=== PATIENT | male | born 1980 | race Caucasian/White ===

== ENCOUNTER 2021-08-22 06:00 | Inpatient (IN) | payer SELFPAY ==
[2021-08-22 06:38] LABS: #Eosinphils 0.1 thou/uL (0.0-0.7); #Lymphocytes 0.8 thou/uL (1.20-3.40); #Monocytes 0.8 thou/uL (0.11-0.59); #Neutrophils 5.2 thou/uL (1.40-6.50); %Basophils 0.3 % (0.0-1.0); %Eosinophils 1.3 % (0.0-10.0); %Lymphocytes 11.7 % (21.0-51.0); %Monocytes 11.6 % (0.0-10.0); %Neutrophils 75.1 % (42.0-75.0); Hemoglobin 10.1 g/dL (14.0-18.0); Mean Corpuscular HGB CONC 32.5 g/dL (32.0-36.0); Mean Corpuscular Hemoglobin 28.2 pg (27.0-31.0); Mean Corpuscular Volume 86.8 fL (78.0-98.0); Mean Platelet Volume 8.8 fL (7.4-10.4); Platelet Count 236 thou/uL (130-400); Red Blood Cell (RBC) Count 3.58 mill/uL (4.70-6.10); White Blood Cell (WBC) Count 6.9 thou/uL (4.8-10.8)
[2021-08-22 06:50] LABS: PTT 26.5 sec (22.9-36.1); Prothrombin Time 13.1 sec (12.0-14.7)
[2021-08-22 06:59] LABS: ALT (SGPT) 11 U/L (8-55); AST (SGOT) 14 U/L (5-34); Albumin 4.1 g/dL (3.5-5.0); Alcohol Less than 10 mg/dL (Less than 10); Alkaline Phosphatase 102 U/L (40-110); Anion Gap 12 mmol/L (10-20); BUN (Urea Nitrogen) 10 mg/dL (8.9-20.6); Bilirubin, Total Less than 0.2 mg/dL (0.2-1.2); Calc. Creatinine Clearance 0 mL/min (70-130); Calcium 8.3 mg/dL (7.8-10.44); Carbon Dioxide 29 mmol/L (22-29); Chloride 106 mmol/L (98-107); Globulin 2.6 g/dL (2.4-3.5); Glucose 105 mg/dL (70-105); Potassium 3.6 mmol/L (3.5-5.1); Protein, Total 6.7 g/dL (6.0-8.3); Sodium 143 mmol/L (136-145)
[2021-08-22] MEDS ORDERED: Morphine 2 MG/ML VIAL ONE (07:46)
[2021-08-22 08:42] LABS: Hemoglobin 8.9 g/dL (14.0-18.0); Platelet Count 204 thou/uL (130-400)
[2021-08-22] MEDS ORDERED: Famotidine/PF 20 mg/2ml Vial SLOW IVP SCH (09:00)
[2021-08-22 09:57] LABS: Amphetamine Not Detected (NotDetected); Barbiturates Screen Detected (NotDetected); Benzodiazepine Screen Not Detected (NotDetected); Cocaine Metabolite Screen Not Detected (NotDetected); Methadone Not Detected (NotDetected); Methamphetamine Not Detected (NotDetected); Opiate Screen Detected (NotDetected); Oxycodone Screen Not Detected (NotDetected); Phencyclidine (PCP) Not Detected (NotDetected); THC/Cannabinoid Screen Not Detected (NotDetected); Tricyclic Screen Not Detected (NotDetected)
[2021-08-22] MEDS ORDERED: Lorazepam 2 MG/ML VIAL SLOW IVP PRN (09:58)
[2021-08-22] MEDS ORDERED: Morphine 4 MG/ML VIAL SLOW IVP PRN (10:03)
[2021-08-22] MEDS ORDERED: Electrolyte Replacement Protocol 1 EACH FS SCH (10:15)
[2021-08-22] MEDS ORDERED: EPINEPHrine 1 MG/ML AMP IVP PRN (10:21)
[2021-08-22 10:30] LABS: SARS-CoV-2 NAA Rapid Test Not Detected (NotDetected)
[2021-08-22 10:32] LABS: Magnesium 1.7 mg/dL (1.6-2.6)
[2021-08-22] MEDS ORDERED: Electrolyte Replacement Protocol FS PRN (11:00)
[2021-08-22] MEDS ORDERED: Magnesium 2 GM/50 ML(in water) 2 GM in Premix Bag 1 BAG IVPB SCH (11:00)
[2021-08-22] MEDS: FOLIC ACID SC SCH (11:01)
[2021-08-22] MEDS: ADMIXTURE FEE SC SCH (11:01)
[2021-08-22] MEDS: diphenhydrAMINE 50 MG/ML VIAL IVP PRN ×3 (11:01→19:39)
[2021-08-22] MEDS: Pantoprazole 40 MG VIAL IVP SCH ×2 (11:02→21:16)
[2021-08-22] MEDS: Lactated Ringer's 1,000 ML IV SCH ×2 (11:02→21:10)
[2021-08-22 11:20] VITALS: BMI 24.9
[2021-08-22] MEDS: Fosphenytoin Sodium 200 MG in Sodium Chloride 0.9% 50 ML IVPB SCH ×2 (12:31→21:16)
[2021-08-22] MEDS: Morphine 4 MG/ML VIAL SLOW IVP PRN ×2 (13:52→16:02)
[2021-08-22] MEDS: metroNIDAZOLE 500 MG in Premix Bag 1 BAG IVPB SCH ×2 (13:53→22:41)
[2021-08-22 14:43] LABS: Hemoglobin 9.1 g/dL (14.0-18.0); Platelet Count 196 thou/uL (130-400)
[2021-08-22] MEDS: Promethazine HCl 25 MG in Sodium Chloride 0.9% 50 ML IVPB PRN ×2 (15:23→21:56)
[2021-08-22] MEDS ORDERED: Promethazine HCl 25 MG/ML VIAL IM PRN (18:36)
[2021-08-22] MEDS ORDERED: Zolpidem Tartrate 5 MG TAB PO PRN (18:36)
[2021-08-22] MEDS ORDERED: Naloxone HCl 0.4 mg/ml Vial IV PRN (18:36)
[2021-08-22] MEDS ORDERED: Ondansetron PF 4 MG/2 ML Vial IVP PRN (18:36)
[2021-08-22] MEDS ORDERED: diphenhydrAMINE 25 MG CAP PO PRN (18:36)
[2021-08-22] MEDS ORDERED: diphenhydrAMINE 50 MG/ML VIAL IM PRN (18:36)
[2021-08-22] MEDS ORDERED: Communication Order-Pharmacy FS SCH (18:45)
[2021-08-22] MEDS: HYDROmorphone 10 mg/100 ml CADD IVPB PRN (19:55)
[2021-08-22] MEDS ORDERED: levETIRAcetam in NS 500 MG in Premix Bag 1 BAG IVPB SCH (21:00)
[2021-08-22] MEDS: levETIRAcetam 500 MG/5 ML VIAL SLOW IVP SCH (21:16)
[2021-08-22 22:14] LABS: Hemoglobin 9.3 g/dL (14.0-18.0); Platelet Count 210 thou/uL (130-400)
[2021-08-23] MEDS: diphenhydrAMINE 50 MG/ML VIAL IVP PRN ×6 (00:27→23:52)
[2021-08-23] MEDS: metroNIDAZOLE 500 MG in Premix Bag 1 BAG IVPB SCH ×3 (05:27→22:43)
[2021-08-23] MEDS: Lactated Ringer's 1,000 ML IV SCH ×2 (05:28→17:13)
[2021-08-23 05:48] LABS: Hemoglobin 8.8 g/dL (14.0-18.0); Platelet Count 186 thou/uL (130-400)
[2021-08-23 06:30] LABS: #Eosinphils 0.1 thou/uL (0.0-0.7); #Lymphocytes 0.6 thou/uL (1.20-3.40); #Monocytes 0.4 thou/uL (0.11-0.59); #Neutrophils 1.7 thou/uL (1.40-6.50); %Basophils 0.4 % (0.0-1.0); %Eosinophils 4.5 % (0.0-10.0); %Monocytes 14.4 % (0.0-10.0); %Neutrophils 60.8 % (42.0-75.0); Mean Corpuscular HGB CONC 31.5 g/dL (32.0-36.0); Mean Corpuscular Hemoglobin 28.4 pg (27.0-31.0); Mean Platelet Volume 8.7 fL (7.4-10.4); Platelet Count 183 thou/uL (130-400); RBC Distribution Width 16.6 % (11.5-14.5); Red Blood Cell (RBC) Count 3.16 mill/uL (4.70-6.10); White Blood Cell (WBC) Count 2.8 thou/uL (4.8-10.8)
[2021-08-23 06:55] LABS: ALT (SGPT) 10 U/L (8-55); AST (SGOT) 12 U/L (5-34); Albumin 3.4 g/dL (3.5-5.0); Alkaline Phosphatase 89 U/L (40-110); Anion Gap 10 mmol/L (10-20); BUN (Urea Nitrogen) 5 mg/dL (8.9-20.6); Bilirubin, Total 0.2 mg/dL (0.2-1.2); Calc. Creatinine Clearance 173 mL/min (70-130); Calcium 8.3 mg/dL (7.8-10.44); Carbon Dioxide 29 mmol/L (22-29); Chloride 105 mmol/L (98-107); Globulin 2.2 g/dL (2.4-3.5); Glucose 91 mg/dL (70-105); Magnesium 1.9 mg/dL (1.6-2.6); Potassium 4.1 mmol/L (3.5-5.1); Protein, Total 5.6 g/dL (6.0-8.3); Sodium 140 mmol/L (136-145)
[2021-08-23] MEDS: Promethazine HCl 25 MG in Sodium Chloride 0.9% 50 ML IVPB PRN ×2 (08:57→16:56)
[2021-08-23] MEDS: levETIRAcetam 500 MG/5 ML VIAL SLOW IVP SCH ×2 (08:58→20:47)
[2021-08-23] MEDS: Pantoprazole 40 MG VIAL IVP SCH ×2 (08:58→20:48)
[2021-08-23 09:42] LABS: Hemoglobin 8.8 g/dL (14.0-18.0); Platelet Count 177 thou/uL (130-400)
[2021-08-23 09:49] LABS: PTT 33.7 sec (22.9-36.1); Prothrombin Time 13.6 sec (12.0-14.7)
[2021-08-23] MEDS ORDERED: Magnesium 2 GM/50 ML(in water) 2 GM in Premix Bag 1 BAG IVPB SCH (10:00)
[2021-08-23] MEDS: Fosphenytoin Sodium 200 MG in Sodium Chloride 0.9% 50 ML IVPB SCH ×2 (10:08→21:24)
[2021-08-23] MEDS: FOLIC ACID SC SCH (11:53)
[2021-08-23] MEDS: ADMIXTURE FEE SC SCH (11:53)
[2021-08-23] MEDS ORDERED: HYDROmorphone 2 MG/ML VIAL SLOW IVP PRN (14:41)
[2021-08-23] MEDS ORDERED: Promethazine HCl 25 MG/ML VIAL IM PRN (14:41)
[2021-08-23] MEDS ORDERED: Promethazine HCl 25 MG/ML VIAL IVPB PRN (14:41)
[2021-08-23] MEDS ORDERED: Ondansetron HCl/PF 4 MG/2 ML Vial IVP PRN (14:41)
[2021-08-23] MEDS ORDERED: Ondansetron PF 4 MG/2 ML Vial IVP PRN (15:47)
[2021-08-23] MEDS ORDERED: Fentanyl 100 MCG/2 ML VIAL ONE (15:53)
[2021-08-23] MEDS ORDERED: Midazolam HCl 2 mg/2 ml Vial ONE (15:53)
[2021-08-23] MEDS ORDERED: PROPOFOL 200 MG/20 ML VIAL ONE (15:57)
[2021-08-23] MEDS ORDERED: Lidocaine 1% PF 5 ML VIAL ONE (15:57)
[2021-08-23] MEDS ORDERED: GoLYTELY 4,000 ml Bottle PO SCH (16:30)
[2021-08-23] MEDS ORDERED: HYDROmorphone 0.5 MG/0.5 ML SYRINGE ONE (16:36)
[2021-08-23] MEDS: HYDROmorphone 10 mg/100 ml CADD IVPB PRN (16:57)
[2021-08-23] MEDS ORDERED: Dextrose 10% in Water 1,000 ML IV SCH (17:00)
[2021-08-23] MEDS ORDERED: Lactated Ringer's 1,000 ML IV SCH (19:00)
[2021-08-24] MEDS: diphenhydrAMINE 50 MG/ML VIAL IVP PRN ×6 (03:42→22:26)
[2021-08-24] MEDS: metroNIDAZOLE 500 MG in Premix Bag 1 BAG IVPB SCH ×3 (05:52→22:26)
[2021-08-24] MEDS: Promethazine HCl 25 MG in Sodium Chloride 0.9% 50 ML IVPB PRN ×3 (07:09→21:32)
[2021-08-24 07:12] LABS: #Eosinphils 0.1 thou/uL (0.0-0.7); #Lymphocytes 0.7 thou/uL (1.20-3.40); #Monocytes 0.5 thou/uL (0.11-0.59); #Neutrophils 2.2 thou/uL (1.40-6.50); %Basophils 0.6 % (0.0-1.0); %Eosinophils 3.4 % (0.0-10.0); %Lymphocytes 20.6 % (21.0-51.0); %Monocytes 13.1 % (0.0-10.0); %Neutrophils 62.3 % (42.0-75.0); Hemoglobin 9.7 g/dL (14.0-18.0); Mean Corpuscular HGB CONC 31.2 g/dL (32.0-36.0); Mean Corpuscular Hemoglobin 27.8 pg (27.0-31.0); Mean Corpuscular Volume 89.2 fL (78.0-98.0); Mean Platelet Volume 8.9 fL (7.4-10.4); Platelet Count 210 thou/uL (130-400); RBC Distribution Width 16.5 % (11.5-14.5); Red Blood Cell (RBC) Count 3.48 mill/uL (4.70-6.10); White Blood Cell (WBC) Count 3.5 thou/uL (4.8-10.8)
[2021-08-24 07:38] LABS: ALT (SGPT) 12 U/L (8-55); AST (SGOT) 13 U/L (5-34); Albumin 3.8 g/dL (3.5-5.0); Alkaline Phosphatase 96 U/L (40-110); Anion Gap 10 mmol/L (10-20); BUN (Urea Nitrogen) 6 mg/dL (8.9-20.6); Bilirubin, Total 0.2 mg/dL (0.2-1.2); Calc. Creatinine Clearance 160 mL/min (70-130); Calcium 8.9 mg/dL (7.8-10.44); Carbon Dioxide 29 mmol/L (22-29); Chloride 105 mmol/L (98-107); Globulin 2.4 g/dL (2.4-3.5); Glucose 76 mg/dL (70-105); Protein, Total 6.2 g/dL (6.0-8.3); Sodium 140 mmol/L (136-145)
[2021-08-24] MEDS: levETIRAcetam 500 MG/5 ML VIAL SLOW IVP SCH ×2 (07:57→22:25)
[2021-08-24] MEDS: Pantoprazole 40 MG VIAL IVP SCH ×2 (07:57→22:26)
[2021-08-24] MEDS: Fosphenytoin Sodium 200 MG in Sodium Chloride 0.9% 50 ML IVPB SCH ×2 (07:57→22:26)
[2021-08-24] MEDS ORDERED: Fentanyl 100 MCG/2 ML VIAL ONE (09:15)
[2021-08-24] MEDS ORDERED: PROPOFOL 200 MG/20 ML VIAL ONE (09:31)
[2021-08-24] MEDS ORDERED: Ondansetron HCl/PF 4 MG/2 ML Vial IVP PRN (10:08)
[2021-08-24] MEDS ORDERED: HYDROmorphone 2 MG/ML VIAL SLOW IVP PRN (10:08)
[2021-08-24] MEDS ORDERED: Promethazine HCl 25 MG/ML VIAL IVPB PRN (10:08)
[2021-08-24] MEDS ORDERED: HYDROmorphone 0.5 MG/0.5 ML SYRINGE ONE (10:11)
[2021-08-24] MEDS: FOLIC ACID SC SCH (10:59)
[2021-08-24] MEDS: ADMIXTURE FEE SC SCH (10:59)
[2021-08-24] MEDS ORDERED: TRACE ELEMENT IV SCH (14:00)
[2021-08-24] MEDS ORDERED: MULTIVITAMINS IV SCH (14:00)
[2021-08-24] MEDS ORDERED: Sodium Acetate 2 mEq/ml 40 MEQ, Sodium Chloride 30 MEQ, Potassium Chloride 20 MEQ, Pota... IV SCH (14:00)
[2021-08-24] MEDS ORDERED: [UNRECOGNIZED DRUG - OTHER] IV SCH (14:00)
[2021-08-25] MEDS ORDERED: diphenhydrAMINE 50 MG/ML VIAL IVP PRN ×2 (01:34→04:36)
[2021-08-25] MEDS ORDERED: Bacitracin 1 PK TOP PRN (04:35)
[2021-08-25] MEDS: HYDROmorphone 10 mg/100 ml CADD IVPB PRN (04:56)
[2021-08-25] MEDS: Promethazine HCl 25 MG in Sodium Chloride 0.9% 50 ML IVPB PRN (05:01)
[2021-08-25] MEDS: diphenhydrAMINE 50 MG/ML VIAL IVP PRN ×2 (05:12→08:51)
[2021-08-25 05:47] LABS: #Eosinphils 0.1 thou/uL (0.0-0.7); #Lymphocytes 0.7 thou/uL (1.20-3.40); #Monocytes 0.6 thou/uL (0.11-0.59); #Neutrophils 2.7 thou/uL (1.40-6.50); %Basophils 0.8 % (0.0-1.0); %Eosinophils 3.2 % (0.0-10.0); %Lymphocytes 17.4 % (21.0-51.0); %Monocytes 13.9 % (0.0-10.0); %Neutrophils 64.7 % (42.0-75.0); Hemoglobin 9.2 g/dL (14.0-18.0); Mean Corpuscular HGB CONC 32.3 g/dL (32.0-36.0); Mean Corpuscular Hemoglobin 28.3 pg (27.0-31.0); Mean Corpuscular Volume 87.5 fL (78.0-98.0); Mean Platelet Volume 8.9 fL (7.4-10.4); Platelet Count 204 thou/uL (130-400); RBC Distribution Width 16.6 % (11.5-14.5); Red Blood Cell (RBC) Count 3.26 mill/uL (4.70-6.10); White Blood Cell (WBC) Count 4.1 thou/uL (4.8-10.8)
[2021-08-25 06:18] LABS: ALT (SGPT) 10 U/L (8-55); AST (SGOT) 11 U/L (5-34); Albumin 3.7 g/dL (3.5-5.0); Alkaline Phosphatase 94 U/L (40-110); Anion Gap 9 mmol/L (10-20); BUN (Urea Nitrogen) 12 mg/dL (8.9-20.6); Bilirubin, Total Less than 0.2 mg/dL (0.2-1.2); Calc. Creatinine Clearance 146 mL/min (70-130); Calcium 8.6 mg/dL (7.8-10.44); Carbon Dioxide 30 mmol/L (22-29); Chloride 104 mmol/L (98-107); Globulin 2.4 g/dL (2.4-3.5); Glucose 106 mg/dL (70-105); Potassium 3.7 mmol/L (3.5-5.1); Protein, Total 6.1 g/dL (6.0-8.3); Sodium 139 mmol/L (136-145)
[2021-08-25] MEDS: metroNIDAZOLE 500 MG in Premix Bag 1 BAG IVPB SCH (08:07)
[2021-08-25 08:08] VITALS: TEMP 98.1
[2021-08-25] MEDS: Pantoprazole 40 MG VIAL IVP SCH (08:57)
[2021-08-25] MEDS: levETIRAcetam 500 MG/5 ML VIAL SLOW IVP SCH (09:00)
[2021-08-25] MEDS ORDERED: HYDROmorphone 10 mg/100 ml CADD IVPB PRN (09:06)
[2021-08-25] MEDS: Fosphenytoin Sodium 200 MG in Sodium Chloride 0.9% 50 ML IVPB SCH (10:05)
[2021-08-25 12:07] VITALS: BP 136/89
[2021-08-25] MEDS ORDERED: CLINIMIX E IV ONE (14:00)
[2021-08-25] MEDS ORDERED: Sodium Acetate 2 mEq/ml 40 MEQ, Sodium Chloride 30 MEQ, Potassium Chloride 20 MEQ, Pota... IV SCH (14:00)
[2021-08-25] MEDS ORDERED: MULTIVITAMINS IV ONE (14:00)
[2021-08-25] MEDS ORDERED: TRACE ELEMENT IV ONE (14:00)
== END 2021-08-25 12:10 | disposition left against medical advice (07) | DRG 394 ==
LOC: ERS 06:00 → T4-A 08:25
PROVIDERS: ADMIT Family Medicine; ATTEND Internal Medicine
PROC: 0DB68ZX Excision of Stomach, Via Natural or Artificial Opening Endoscopic, Diagnostic (ICD-10-PCS; 2021-08-23)
PROC: 0W3P8ZZ Control Bleeding in Gastrointestinal Tract, Via Natural or Artificial Opening Endoscopic (ICD-10-PCS; principal; 2021-08-24)
PROC: 0DBP8ZX Excision of Rectum, Via Natural or Artificial Opening Endoscopic, Diagnostic (ICD-10-PCS; 2021-08-24)
PROC: 0DBE8ZX Excision of Large Intestine, Via Natural or Artificial Opening Endoscopic, Diagnostic (ICD-10-PCS; 2021-08-24)
PROC: 02HV33Z Insertion of Infusion Device into Superior Vena Cava, Percutaneous Approach (ICD-10-PCS; 2021-08-24)
PROC: B548ZZA Ultrasonography of Superior Vena Cava, Guidance (ICD-10-PCS; 2021-08-24)
PROC: B5181ZA Fluoroscopy of Superior Vena Cava using Low Osmolar Contrast, Guidance (ICD-10-PCS; 2021-08-24)
DX: K62.6 Ulcer of anus and rectum (principal); M87.052 Idiopathic aseptic necrosis of left femur; C49.9 Malignant neoplasm of connective and soft tissue, unspecified; K91.2 Postsurgical malabsorption, not elsewhere classified; D62 Acute posthemorrhagic anemia; K50.90 Crohn's disease, unspecified, without complications; C79.49 Secondary malignant neoplasm of other parts of nervous system; C79.89 Secondary malignant neoplasm of other specified sites; K63.3 Ulcer of intestine; K92.0 Hematemesis; D64.9 Anemia, unspecified; Z51.5 Encounter for palliative care; R11.2 Nausea with vomiting, unspecified; G89.4 Chronic pain syndrome; G40.909 Epilepsy, unspecified, not intractable, without status epilepticus; C76.1 Malignant neoplasm of thorax; K29.70 Gastritis, unspecified, without bleeding; Z53.21 Procedure and treatment not carried out due to patient leaving prior to being seen by health care provider; Z20.822 Contact with and (suspected) exposure to COVID-19; Z96.641 Presence of right artificial hip joint; Z79.899 Other long term (current) drug therapy; Z99.3 Dependence on wheelchair; Z92.3 Personal history of irradiation; Z91.041 Radiographic dye allergy status; Z88.8 Allergy status to other drugs, medicaments and biological substances; Z88.6 Allergy status to analgesic agent; Z92.21 Personal history of antineoplastic chemotherapy; Z90.49 Acquired absence of other specified parts of digestive tract; Z98.890 Other specified postprocedural states; Z80.3 Family history of malignant neoplasm of breast; Z80.8 Family history of malignant neoplasm of other organs or systems
CPT/HCPCS: 36415; 36416; 36569; 70450; 70551; 72170; 74176; 80053; 80185; 80306; 80307; 83735; 84443; 85014; 85018; 85025; 85049; 85610; 85730; 86850; 86900; 86901; 88305; 88341; 88342; 93005; 95712; 95819; 95957; 96361; 96374; C1751; C9113; J1170; J1200; J1953; J2060; J2250; J2270; J2550; J2704; J3010; J3475; J7120; Q2009; U0002